=== PATIENT | female | born 1960 | race Caucasian/White ===

== ENCOUNTER 2016-08-06 08:39 | Day surgery (SDC) | payer OTHER ==
--- NOTE | ~2016-08-06 | EGD ---
EGD REPORT [facility] [address] [address] NAME: YOANNA CORDOBA : 62 STATUS : REG [facility] [place] PAT#: [id number] AGE: 56 ADM/REG DATE : 08/06/16 MR#: [id number] REPORT SERV DATE: 08/06/16 DICTATED BY: CHRISTIANO COYLE DATE: 08/06/16 REPORT STATUS : Draft [facility]ANS[facility]IB[facility] BY: [facility] DATE: 08/06/16 Endoscopy Center Patient Name: Yoanna Cordoba Date of : 1960 Attending MD: CHRISTIANO COYLE MD Procedure Date No Time: 08/06/2016 Procedure: Colonoscopy Indications: Screening for colorectal malignant neoplasm Referring MD: LUAN GONGORA MD Medicines: Propofol per Anesthesia Complications: No immediate complications. Estimated blood loss: None. Procedure: Pre-Anesthesia Assessment: - After reviewing the risks and benefits, the patient was deemed in satisfactory condition to undergo the procedure. - Prior to the procedure, a History and Physical was performed, and patient medications and allergies were reviewed. The patient's tolerance of previous anesthesia was also reviewed. The risks and benefits of the procedure and the sedation options and risks were discussed with the patient. All questions were answered, and informed consent was obtained. Prior Anticoagulants: The patient has taken no previous anticoagulant or antiplatelet agents. ASA Grade Assessment: III - A patient with severe systemic disease. After reviewing the risks and benefits, the patient was deemed in satisfactory condition to undergo the procedure. After I obtained informed consent, the scope was passed under direct vision. Throughout the procedure, the patient's blood pressure, pulse, and oxygen saturations were monitored continuously. The CF [id number] was introduced through the anus and advanced to the cecum, identified by appendiceal orifice and ileocecal valve. The colonoscopy was performed with difficulty due to unsatisfactory bowel prep and a tortuous colon. Successful completion of the procedure was aided by straightening and shortening the scope to obtain bowel loop reduction, applying abdominal pressure and lavage. The ileocecal valve and appendiceal orifice were photographed. The patient tolerated the procedure well. The quality of the bowel preparation was fair. The bowel preparation used was split dose polyethylene glycol (PEG). Scope withdrawal time was greater than 6 minutes. Findings: EGD REPORT [address] [place]. [address] NAME: YOANNA CORDOBA : [birth year] STATUS : REG [facility] [place] PAT#: [id number] AGE: 56 ADM/REG DATE : 08/06/16 MR#: [id number] REPORT SERV DATE: 08/06/16 DICTATED BY: CHRISTIANO CYOLE DATE: 08/06/16 REPORT STATUS : Draft TRANSCRIBED BY: [employer] DATE: 08/06/16 The perianal and digital rectal examinations were normal. Pertinent negatives include normal sphincter tone. The entire examined colon appeared normal on direct and retroflexion views. Impression: - The entire examined colon is normal on direct and retroflexion views. Recommendation: - Discharge patient to home (ambulatory). - Return to previous diet. - Continue present medications. - Repeat colonoscopy in 5 years for screening purposes and because the bowel preparation was suboptimal with an extended bowel prep. - Patient has a contact number available for emergencies. The signs and symptoms of potential delayed complications were discussed with the patient. Return to normal activities tomorrow. Written discharge instructions were provided to the patient. Procedure Code(s): --- Professional --- G0121, Colorectal cancer screening; colonoscopy on individual not meeting criteria for high risk Diagnosis Code(s): --- Professional --- Z12.11, Encounter for screening for malignant neoplasm of colon CPT copyright 2013 [employer]. All rights reserved. The codes documented in this report are preliminary and upon interactive media marketing director review may be revised to meet current compliance requirements. CHRISTIANO COYLE MD 08/06/2016 11:22 AM This report has been signed electronically. Number of Addenda: 0 Note Initiated On: 08/06/2016 10:48 AM Scope Withdrawal Time 0 hours 6 minutes 19 seconds [id number] [id number]
[~2016-08-06 08:39] MED LIST: ASAB PO; EFFIENT10 PO; LOP25 PO; NITROQUICK0.4 MG SL; NITROSTAT0.4 MG SL; PRIN10 PO; ZESTRIL10 MG PO; ZOCOR10 PO; ZOCOR40 PO; ZOL100 PO; ZOL50 PO
== END 2016-08-06 23:59 | disposition home or self-care (01) ==
LOC: DMU 08:39
PROVIDERS: Internal Medicine Gastroenterology
PROC: 0DJD8ZZ Inspection of Lower Intestinal Tract, Via Natural or Artificial Opening Endoscopic (ICD-10-PCS; principal; 2016-08-06 10:15)
DX: Z12.11 Encounter for screening for malignant neoplasm of colon (principal); I10 Essential (primary) hypertension; I25.2 Old myocardial infarction; E78.00 Pure hypercholesterolemia, unspecified; G47.33 Obstructive sleep apnea (adult) (pediatric); F41.9 Anxiety disorder, unspecified; F32.9 Major depressive disorder, single episode, unspecified; Z95.5 Presence of coronary angioplasty implant and graft; Z88.1 Allergy status to other antibiotic agents; Z88.8 Allergy status to other drugs, medicaments and biological substances; Z98.51 Tubal ligation status; Z87.442 Personal history of urinary calculi; Z98.890 Other specified postprocedural states; Z79.899 Other long term (current) drug therapy; Z79.82 Long term (current) use of aspirin